=== PATIENT | male | born 1980 | race Caucasian/White ===

== ENCOUNTER 2019-04-26 17:27 | Emergency (ER) | payer SELFPAY ==
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
[2019-04-26 19:33] VITALS: TEMP 98.7
[2019-04-26 19:34] VITALS: BP 122/78; O2SAT 98
== END 2019-04-26 19:26 | disposition home or self-care (01) ==
LOC: ER 17:27
DX: M54.5 Low back pain (principal); M54.6 Pain in thoracic spine; V44.5XXA Car driver injured in collision with heavy transport vehicle or bus in traffic accident, initial encounter; Y93.89 Activity, other specified; Y92.410 Unspecified street and highway as the place of occurrence of the external cause
CPT/HCPCS: 72070; 72100; 99283